=== PATIENT | male | born 1960 | race African-American/Black ===

== ENCOUNTER 2016-11-14 13:15 | Inpatient (IN) | payer MEDICARE ==
--- NOTE | ~2016-11-14 | CO ---
Unit #: [id number] #: [id number] Patient: MARCO ANTONIO NI [id number] [id number] [facility]. [place], [place] [address] [id number] I MR#: [id number] NAME: MARCO ANTONIO NI ROOM: 313 Age: 56 Sex: M Admission Date: 11/14/2016 : 1960 Attending Physician: Minna Kilpatrick M.D. Requesting Physician: Sima Casarez M.D. CONSULTATION REPORT REASON FOR CONSULTATION Evaluation for atrial fibrillation. HISTORY OF PRESENT ILLNESS He is a 56-year-old gentleman who had a history of hypertension. He has not been taking his medications on a regular basis. He also has a history of diabetes. Her came in because of the blurred vision. When he came in his blood pressure was more than 200 systolic. Eventually he was admitted for further treatment of his hypertensive urgency. He is started on Norvasc, lisinopril, hydrochlorothiazide. Now his blood pressure is 150 systolic. He denies any chest pain, shortness of breath, orthopnea, PND, palpitations but he is still having some blurred vision. PAST MEDICAL HISTORY He is positive for hypertension, diabetes, psoriasis. PAST SURGICAL HISTORY None. SOCIAL HISTORY He lives by himself. He does not smoke and does not drink. FAMILY HISTORY His dad had a heart attack at the age of 51. ALLERGIES Not allergic to any medications. MEDICATIONS He is supposed to take amlodipine 10 mg daily; Zestril 30 mg daily; hydrochlorothiazide 25 mg daily; Lantus and Humalog but he has not been taking. REVIEW OF SYSTEMS A ten point review of system is negative except as noted in HPI. PHYSICAL EXAMINATION GENERAL: He looks comfortable, lying comfortably in bed. He is undergoing echo. VITAL SIGNS: He is heart rate is 90 but irregularly. On the monitor he is having AFib. Blood pressure is 150/60. He is breathing at a respiratory rate of 16. HEENT: Conjunctivae normal. Pupils are round and reactive. Oral mucosa is moist. No cyanosis. Unit #: [id number] #: [id number] Patient: MARCO ANTONIO NI NECK: He had no thyromegaly. Carotid upstroke is normal. JVD is not elevated. CHEST: Breathing normal and clear on auscultation. CARDIAC: He has no parasternal lift. S1 and S2 normally heard. No gallop. No murmur. ABDOMEN: Soft, liver and spleen not enlarged. Abdominal aorta not palpable and guaiac test not indicated. EXTREMITIES: No pedal edema. 2+ bilateral femoral and dorsal pedis vessel. There is no clubbing. SKIN: No rash or abnormal pigmentation. NEUROLOGIC: He is oriented x3. Mood is normal. Muscle in all extremities normal. DIAGNOSTIC STUDIES CARDIOLOGY STUDIES: EKG is definitely AFib with rapid ventricular rate with nonspecific ST-T changes. I also looked his echo, which is showing a concentric mild LVH with normal LV size and function but he has left atrial enlargement. ASSESSMENT 1. AFib with rapid ventricular rate. 2. Hypertension, poorly controlled secondary to noncompliance. 3. Diabetes, also poorly controlled. PLAN 1. From a cardiac standpoint I will continue with his amlodipine and Zestril, hydrochlorothiazide. 2. I will put him on slow release metoprolol succinate 100 mg p.o. daily. I will also initiate Eliquis 5 mg twice a day. Probably this patient can be discharged home tomorrow. Dictated by... Norma Blake/milagros TD: 11/15/2016 10:36 JOB #: [id number] CONSULTATION REPORT X Camron Bloom MD X CONSULTATION REPORT
--- NOTE | ~2016-11-14 | CT17 ---
[facility] A Service of [facility] RADIOLOGY TEXT RESULTS PATIENT: MARCO ANTONIO NI LOCATION: C3A 313-01 : [birth year] UNIT #: [id number] AGE: [address]: Minna Kilpatrick MD SEX: M ORDER DR: [id number] [facility] [address] [place], [place] [address] [id number] I MR#: [id number] Acc #: [id number] NAME: MARCO ANTONIO NI : 1960 SEX: M STUDY DATE/TIME: 11/15/2016 16:34 UNIT: SEDOF ROOM: [id number] STUDY DESCRIPTION: CT Angio Head Attending Physician: Sima Casarez M.D. Ordering Physician: Minna Kilpatrick M.D. MEDICAL IMAGING REPORT This report is preliminary unless electronic signature is present EXAM CT arteriogram of the head and neck vasculature, 11/15/2016. CLINICAL HISTORY 56-year-old male with severe headache and vision loss. Patient has diabetes. The vision loss has occurred over the last 3 days with headache for 1 month. TECHNIQUE Contiguous 2 mm axial images were obtained through the region of the head and neck vasculature after bolus IV contrast administration. 2-D and 3-D reconstructions were then performed at a separate workstation and submitted for evaluation. This CT exam was performed with one or more of the following radiation dose reduction techniques: automatic exposure control, adjustment of mA and/or kV according to patient size, and iterative reconstruction. FINDINGS The arch angiogram demonstrates a normal branching pattern without evidence of a great vessel origin stenosis. The vertebral artery origins are widely patent bilaterally and the vertebral arteries appear codominant. This persists at the vertebrobasilar junction and the basilar artery is normal in caliber as well. The basilar artery terminates into normal P1 and P2 segments bilaterally as well as single bilateral superior cerebellar arteries. The MCA, GEOFFREY and CALL CENTER AGENT runoffs are symmetric and the anterior circulation shows a normal M1 and A1 segment bilaterally. Patent anterior communicating artery is suggested but no posterior communicating artery is identified. No aneurysms, hypervascular lesions or evidence of AV shunting is appreciated. IMPRESSION [facility] A Service of [facility] RADIOLOGY TEXT RESULTS PATIENT: MARCO ANTONIO NI LOCATION: C3A 313-01 : [birth year] UNIT #: [id number] AGE: [address]: Minna Kilpatrick MD SEX: M ORDER DR: 1. No evidence of an aneurysm, hypervascular lesion or AV shunting. 2. No cerebrovascular stenosis of significance. 3. No narrowing of the cervical carotid bifurcations by NASCET criteria. Dictated by... Ashwin Aguilar M.D. THIS IS AN ELECTRONICALLY VERIFIED REPORT Ashwin Aguilar M.D. at 11/16/2016 4:12 PM Luc TD: 11/15/2016 21:25 JOB #: [id number] MEDICAL IMAGING REPORT COPY
--- NOTE | ~2016-11-14 | HP ---
Unit #: [id number] #: [id number] Patient: MARCO ANTONIO NI [id number] [facility] [address] [place], [place] [address] [id number] I MR#: [id number] NAME: MARCO ANTONIO NI ROOM: 550 Age: 56 Sex: M Admission Date: 11/14/2016 : 1960 Attending Physician: Sima Casarez M.D. HISTORY AND PHYSICAL CHIEF COMPLAINT Losing vision. HISTORY OF PRESENT ILLNESS The patient is a 56-year-old male with past medical history of hypertension, diabetes, psoriasis, who presented to [facility] for evaluation of the above. The patient states that his sister made him come to the hospital. She was concerned about visual loss. Apparently she noticed that he was having to hold onto things and did not seem to be seeing well. The patient states that he wears glasses. His last celine exam was more than a year ago. He has had progressive worsening blurry vision over the past several weeks to months. He has also had a mild headache. He denies any chest pain. No difficulty breathing. He has had an occasional cough. He denies any vomiting or diarrhea. No urinary symptoms. He has not been taking his medication for several months. He states that he does not like needles. He has not been checking his blood sugars at home. On arrival in the emergency department, the patient's blood pressure was 224/128. Initial Accu-Chek was 438. He was given 1 L of normal saline as well as 8 units of regular insulin and 20 mg of labetalol. He was transferred to [facility] for admission. PAST MEDICAL HISTORY 1. Admission to [facility] more than a year ago for uncontrolled high blood pressure (no records). 2. Hypertension. 3. Diabetes. 4. Psoriasis. PAST SURGICAL HISTORY None. SOCIAL HISTORY The patient lives alone. There is no tobacco or alcohol use. FAMILY HISTORY Family history is notable for diabetes. His father of a heart attack at the age of 51. ALLERGIES No known allergies. Unit #: [id number] #: [id number] Patient: MARCO ANTONIO NI HOME MEDICATIONS Home medications are listed as amlodipine, Zestril, hydrochlorothiazide, Lantus, Humalog. The patient has not been taking his medications for several months. Home medications will need to be reviewed and verified. REVIEW OF SYSTEMS A 10-point review of systems is negative except as indicated in the HPI. DIAGNOSTIC STUDIES LABORATORY: Complete blood count essentially normal. Urinalysis is negative. Comprehensive metabolic panel notable for a sodium of 133, that corrects when a glucose of 463 is accounted for, bicarbonate is 30, chloride is 92, total protein 9.5. PHYSICAL EXAMINATION VITAL SIGNS: Temperature 98.4. Pulse 90. Blood pressure 224/128. Oxygen saturation 99% on room air. GENERAL: The patient is an -Pakistani male who is awake and alert, in no acute distress. HEENT: The head is atraumatic. Dentition is poor. NECK: Neck is supple. Trachea is midline. CARDIOVASCULAR: Regular rate and rhythm. LUNGS: Lungs are clear to auscultation bilaterally with no increased work of breathing. ABDOMEN: Abdomen is soft, nontender, with bowel sounds present in all four quadrants. EXTREMITIES: The patient has scattered skin lesions consistent with psoriasis. PSYCHIATRIC: The patient demonstrates poor insight and judgment. NEUROLOGIC: The patient is oriented to place and year. He is moving all extremities. He follows commands. SKIN: Skin demonstrates the previously described abnormalities. ASSESSMENT The patient is a 56-year-old male with: 1. Hypertensive emergency. The patient received 20 mg of labetalol in the emergency department. Most recent blood pressure is 183/117. 2. Uncontrolled diabetes. The patient has not been taking his medication. 3. Blurry vision, likely diabetic retinopathy. 4. Headache. 5. Psoriasis. 6. Elevated total protein. 7. Noncompliance. PLAN 1. Admit for observation to intermediate level. 2. Healthy heart consistent carb diet. 3. Check EKG and cardiac enzymes. 4. Two-D echo. 5. P.r.n. hydralazine. 6. TSH. 7. CT of the head without contrast. 8. Neuro checks. 9. Hemoglobin A1C. 10. Low-dose sliding-scale insulin with Accu-Cheks. 11. Levemir 10 units daily with first dose now. Unit #: [id number] #: [id number] Patient: MARCO ANTONIO NI 12. Verify home medications. 13. Get records from [facility]. 14. Bedrest. 15. Fall precautions. 16. PT and OT to evaluate and treat. 17. manager government/social work consult regarding home safety. 18. Repeat labs in the morning. 19. SCDs for DVT prophylaxis. 20. Additional workup and consultants based on above. Dictated by Sima Casarez M.D. KAREN/ferny TD: 11/14/2016 20:44 JOB #: [id number] HISTORY AND PHYSICAL X Sima Casarez MD X HISTORY AND PHYSICAL
--- NOTE | ~2016-11-14 | MR17 ---
[facility] A Service of [facility] RADIOLOGY TEXT RESULTS PATIENT: MARCO ANTONIO NI LOCATION: C3A PC 313-01 : 62 UNIT #: [id number] AGE: [address]: Minna Kilpatrick MD SEX: M ORDER DR: [id number] [facility] [address] [place], [place] [address] [id number] I MR#: [id number] Acc #: [id number] NAME: MARCO ANTONIO NI : 1960 SEX: M STUDY DATE/TIME: 11/15/2016 10:56 UNIT: SEDOF ROOM: Rust STUDY DESCRIPTION: MR Brain WWo Contrast Attending Physician: Sima Casarez M.D. Ordering Physician: Sima Casarez M.D. MRI CENTER REPORT This report is preliminary unless electronic signature is present. EXAM MRI of the brain with and without contrast performed on 11/15/2016 HISTORY 56-year-old male with blurred vision and hearing loss as well as severe headache for the past 3 days. TECHNIQUE Sagittal and axial T1, axial T2, axial FLAIR, axial diffusion, axial gradient echo, axial and coronal postcontrast T1-weighted images were obtained through the region of the brain. FINDINGS There is restricted diffusion present within the right occipital lobe with corresponding decreased ADC and an acute infarct is suspected. This is in the posterior cerebral artery territory on the right. On the gradient echo sequence, there is some decreased signal seen in the infarcted gyri and petechial hemorrhage is suspected. No midline shift or severe mass effect is present. The occipital horn of the right lateral ventricle remains patent. On the FLAIR sequence, there are foci of increased signal in the periventricular white matter, centrum semiovale and subcortical white matter bilaterally as well as in the cortex involving not only the right occipital lobe but the left temporal lobe as well. In the region of the left temporal lobe, there is additionally some decreased gradient echo signal again consistent with some petechial hemorrhage. Enhancement in this location is seen after gadolinium administration within the brain parenchyma and this is suspected to be a subacute infarct. The acute infarct shows some vascular enhancement. Midline structures are intact and no pituitary or pineal lesions are seen. Some old lacunar infarcts are present in the basal ganglia bilaterally as well as in the sabas. The paranasal sinuses and mastoid air cells are clear. No orbital lesions are seen. The vascular flow voids appear within normal limits. No orbital lesions are seen. [facility] A Service of [facility] RADIOLOGY TEXT RESULTS PATIENT: MARCO ANTONIO NI LOCATION: C3A PC 313-01 : 62 UNIT #: [id number] AGE: [address]: Minna Kilpatrick MD SEX: M ORDER DR: IMPRESSION Bilateral cerebral infarcts of differing ages. 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 This is seen on a background of chronic ischemic changes. No significant mass effect is present at this time. Dictated by... Ashwin Aguilar M.D. THIS IS AN ELECTRONICALLY VERIFIED REPORT Ashwin Aguilar M.D. at 11/15/2016 5:02 PM AJ/emily TD: 11/15/2016 13:58 JOB #: [id number] MRI CENTER REPORT COPY
--- NOTE | ~2016-11-14 | CT71 ---
[facility] A Service of [facility] RADIOLOGY TEXT RESULTS PATIENT: MARCO ANTONIO NI LOCATION: C3A PC 313-01 : [birth year] UNIT #: [id number] AGE: [address]: Minna Kilpatrick MD SEX: M ORDER DR: [id number] [facility] [address] [place], [place] [address] [id number] I MR#: [id number] Acc #: [id number] NAME: MARCO ANTONIO NI : 1960 SEX: M STUDY DATE/TIME: 11/16/2016 14:27 UNIT: SEDOF ROOM: [facility] STUDY DESCRIPTION: CT Head Wo Contrast Attending Physician: Sima Casarez M.D. Ordering Physician: Phoenix Luciano M.D. MEDICAL IMAGING REPORT This report is preliminary unless electronic signature is present EXAM CT brain without contrast media HISTORY SUPPLIED Hemorrhagic recent stroke, possible hemorrhagic transformation on blood thinners. TECHNIQUE Transaxial imaging of the brain was performed without contrast media. This CT exam was performed with one or more of the following radiation dose reduction techniques: automatic exposure control, adjustment of mA and/or kV according to patient size, and iterative reconstruction. COMPARISON Previous study FINDINGS The examination shows some subtle increase in density along the cortical margin of the infarct in the right occipital region. This likely represents small petechial hemorrhages. No mass lesions and no additional mass effect is seen from the right parietal occipital infarct. There are chronic ischemic changes in the periventricular white matter in both hemispheres. No evidence subarachnoid hemorrhage. There is an old area infarction within the right thalamus, stable. CONCLUSION 1. Development of subtle petechial hemorrhages in the right occipital/parietal occipital infarct. No mass effect. No significant change in the size of the infarction and no major hemorrhage. 2. Deep white matter ischemic changes. 3. Old infarct right thalamus. 4. No additional intracranial findings. [facility] A Service of [facility] RADIOLOGY TEXT RESULTS PATIENT: MARCO ANTONIO NI LOCATION: LouA PC 313-01 : [birth year] UNIT #: [id number] AGE: [address]: Minna Kilpatrick MD SEX: M ORDER DR: Dictated by... Kamron Gutierrez M.D. THIS IS AN ELECTRONICALLY VERIFIED REPORT Kamron Gutierrez M.D. at 11/21/2016 1:00 PM ARLEYK/edd TD: 11/16/2016 17:41 JOB #: [id number] MEDICAL IMAGING REPORT COPY
--- NOTE | ~2016-11-14 | EKG ---
PATIENT: MARCO ANTONIO NI UNIT #: [id number] Ventricular Rate: 106 BPM Atrial Rate: 375 BPM QRS Duration: 102 ms Q-T Interval: 348 ms QTC Calculation(Bezet): 462 ms Calculated R Lisman: 86 degrees Calculated T Lisman: -115 degrees Diagnosis Line: Atrial fibrillation with rapid ventricular Diagnosis Line: response with premature ventricular or aberrantly Diagnosis Line: conducted complexes Diagnosis Line: ST and T wave abnormality, consider inferolateral Diagnosis Line: ischemia or digitalis effect Diagnosis Line: Abnormal ECG Diagnosis Line: No previous ECGs available Diagnosis Line: Confirmed by MARIELOS NICE MD ([id number]) on 11/17/2016 Diagnosis Line: 5:28:36 PM INTERPRETING MD: ARLET CHOWDARY
--- NOTE | ~2016-11-14 | DS ---
Unit #: [id number] #: [id number] Patient: MARCO ANTONIO HUGHES [id number] [facility]. [place], [place] [address] [id number] MR#: [id number] NAME: MARCO ANTONIO HUGHES ROOM: 313 Age: 56 Sex: M Admission Date: 11/15/2016 : 1960 Discharge Date: 11/17/2016 Attending Physician: Minna Kilpatrick M.D. DISCHARGE SUMMARY PRINCIPAL DIAGNOSES 1. Bilateral cerebral infarct, embolic in origin secondary to atrial fibrillation. 2. Right occipital lobe embolic stroke with subsequent left-sided hemianopsia. 3. Atrial fibrillation, paroxysmal, currently maintained in normal sinus rhythm. 4. Small subacute infarct of posterior left frontal lobe with associated petechial hemorrhage. 5. Diabetes mellitus type 2, insulin requiring and uncontrolled, with hemoglobin A1c of 10.6. 6. Hyperlipidemia. 7. Hypertensive emergency. 8. Mild delirium, now resolved. 9. Psoriasis, moderate to severe. CONSULTANTS Dr. Whitney of neurology. Dr. Phoenix Luciano of cardiology. PROCEDURES PERFORMED RONALD on 11/16/2016 with trace mitral regurgitation, mildly to moderately increased left atrial size. No evidence of PFO. No evidence of thrombus. No atrioseptal defect. Ejection fraction of 55%-60%. Grade 1 diastolic dysfunction noted. Moderate concentric left ventricular hypertrophy noted. No evidence of plaque of the aorta. Two-dimensional echocardiogram on 10/15/2016 with normal systolic function. DIAGNOSTIC DATA IMAGING: CT of the head without contrast on 11/14/2016 with late subacute or infarct measuring 5.2 cm in left parietal occipital region with mild mass effect. MRI of the brain with and without contrast on 11/15/2016 with bilateral cerebral infarcts. There is an acute infarct in the right occipital lobe [employer] territory, with associated petechial hemorrhage. Subacute infarct in the posterior left frontal lobe with some petechial hemorrhage. No mass effect. CT angiogram of the head and neck on 11/15/2016 with no evidence of aneurysm or AV shunting. No cerebrovascular stenosis of significance and no narrowing of cervical bilateral carotid bifurcations per NASCET Unit #: [id number] #: [id number] Patient: MARCO ANTONIO HUGHES criteria. CT scan of the head without contrast on 11/16/2016 with subtle petechial hemorrhage in the right occipital and parietooccipital infarct. No major hemorrhage. Old right thalamus infarct. CLINICAL HISTORY/HOSPITAL COURSE Mr. Hughes is a 56-year-old male who was brought to the emergency department with vision changes. Please refer to history and physical for further details. In the emergency department the patient was found to have significant hypertension with a blood pressure of 224/128. He was also significantly hyperglycemic with a blood sugar of 438. The patient was subsequently admitted to the hospital. In regard to the patient's vision changes, Dr. Whitney was consulted. Prior to his consultation a CT scan of the head without contrast was done, revealing a subacute stroke. The patient was placed on aspirin therapy and stroke protocol was initiated. The patient underwent MRI of the brain, revealing an acute right parietooccipital stroke in addition to a subacute left cerebral stroke. Given bilateral nature there was significant concern for embolic source and the patient underwent a RONALD with findings as noted. Will continue on statin therapy and plan to treat with aspirin therapy for approximately 14 days due to the small petechial hemorrhage and the stroke and then transition to Eliquis. In the emergency department the patient was also found to be in atrial fibrillation, which was a new diagnosis and the most likely source of the patient's stroke. Cardiology was consulted. The patient did develop atrial fibrillation with rapid ventricular response for a short period during the hospitalization and was placed on a Cardizem drip. He has now been transitioned to oral Cardizem and has converted back to normal sinus rhythm. The patient is felt to be a candidate for a Watchman procedure and the plan is for him to contact (1) following discharge from [facility] for a Watchman procedure. Will arrange for a Watchman procedure as an outpatient. In regard to the patient's hyperglycemia, he does have significantly uncontrolled diabetes and states he does not like to do shots. I have discussed this with the patient and his family extensively. The plan is for him to go on subcutaneous insulin and he can have evaluation at [facility] for perhaps using an insulin pen, which I think would be easier given his vision changes. The patient's other chronic conditions remain stable. Blood pressure is now down and I think elevation is secondary to a combination of his stroke with uncontrolled hypertension at baseline. He will be discharged to [facility] with close followup as an outpatient. DISCHARGE CONDITION Stable. DISPOSITION Discharge to [facility]. DISCHARGE MEDICATIONS 1. Triamcinolone cream 0.1% to be applied to skin plaque b.i.d. 2. Tylenol 650 mg p.o. q.6 h. p.r.n. pain. 3. Norvasc 10 mg daily. Unit #: [id number] #: [id number] Patient: MARCO ANTONIO HUGHES 4. Cardizem CD 240 mg daily. 5. Toprol XL 100 mg daily. 6. Hydrochlorothiazide 25 mg daily. 7. Lipitor 40 mg at bedtime. 8. Lisinopril 30 mg daily. 9. Levemir 20 units subcutaneously b.i.d. 10. NovoLog 9 units subcutaneous t.i.d. with meals with an associated sliding scale. 11. Aspirin 325 mg daily, to stop after dose given on 11/29/2016. Beginning on 11/30/2016 the patient can begin with Eliquis 5 mg p.o. b.i.d. as anticoagulation for his atrial fibrillation. DIET The patient is instructed to follow a heart healthy, constant carb diet. He should have Accu-Cheks morning and evening. ACTIVITY He will increase his activity as tolerated. FOLLOWUP 1. The patient will follow up with Dr. Bloom in approximately two to three weeks, again for evaluation for a Watchman procedure. 2. The patient is to follow up with Dr. Juan A Yanes of outpatient neurology in approximately six to eight weeks for further evaluation of his stroke. 3. The patient should follow up with his primary care physician upon discharge from [facility] as well. 4. The patient will need close monitoring of his sugars. Dictated by... Minna Kilpatrick M.D. JYOTI/estefania TD: 11/17/2016 12:19 JOB #: [id number] DISCHARGE SUMMARY X Minna Kilpatrick MD DISCHARGE SUMMARY
--- NOTE | ~2016-11-14 | CO ---
Unit #: [id number] #: [id number] Patient: MARCO ANTONIO NI [id number] [facility] [address] [place], [place] [address] [id number] MR#: [id number] NAME: MARCO ANTONIO NI ROOM: 313 Age: 56 Sex: M Admission Date: 11/14/2016 : 1960 Attending Physician: Minna Kilpatrick M.D. Consultation Date: 11/15/2016 CONSULTATION REPORT REFERRING PHYSICIAN Dr. Sima Casarez. PRIMARY CARE PHYSICIAN Not known. REASON FOR CONSULTATION Loss of vision, possible stroke. PATIENT IDENTIFICATION This is a 56-year-old right-handed -[place] male, who was evaluated in room 313 at [facility]. SOURCE OF INFORMATION The patient and the medical record. PROBLEM LIST 1. The most important problem that this young man has is that he is noncompliant. He comes in here with blood pressure of 224/128, so he is hypertensive. 2. He is diabetic. His random glucose was 438. 3. He has psoriasis. 4. He had probably a problem like this in the past. 5. He does have a MRI showing infarct in the right [employer]PL[employer] REPAIRS division. 6. On top of that, he has atrial fibrillation. HISTORY OF PRESENT ILLNESS This is a 56-year-old gentleman with past medical history as discussed above, who actually presented to [facility] from [facility] for evaluation of some blurred vision or loosing vision. He has been apparently dropping things. That has been going on for weeks. Finally, his sister convinced him to go to the hospital. 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 He had atrial fibrillation. He had significant hypertension. He had significant hyperglycemia, so he has been admitted and further workup has been initiated. Dr. Dyson has seen him. He has atrial fibrillation and he has been started on anticoagulation. He may have hypertensive encephalopathy and other issues. The only good thing about his situation is that he is not a smoker. He has significant dental caries also, nothing suggesting endocarditis. Obviously, he was not a (1) intervention candidate. His further Unit #: [id number] #: [id number] Patient: MARCO ANTONIO NI workup is in progress. He does not take any aspirin at home. PAST MEDICAL HISTORY As discussed above. PAST SURGICAL HISTORY As discussed above. ALLERGIES None. HOME MEDICATIONS He is not taking any medications for months but apparently he has been on: 1. Amlodipine. 2. Zestril. 3. Hydrochlorothiazide. 4. Lantus. 5. Humalog. FAMILY HISTORY Diabetes. Father of heart attack at age 51. SOCIAL HISTORY The patient apparently lives alone. No tobacco, alcohol, or drug use. REVIEW OF SYSTEMS CONSTITUTIONAL: He is a bit confused. He is not totally oriented. He denies any recent weight issues, fever, chills, rigors, sweats. He denies any sleep issues. HEENT: Vision changes as discussed. NECK: No neck problems. CARDIOVASCULAR: No chest pain, clubbing, cyanosis, orthopnea, palpitations. He does have atrial fibrillation but apparently he may not know. PULMONARY: No shortness of air, cough, or expectoration. GASTROINTESTINAL: No nausea, vomiting, diarrhea, or constipation. GENITOURINARY: No genitourinary symptoms. No other extremity problems. No back problems. No psychiatric issues. NEUROLOGIC: Issues as discussed. HEMATOLOGIC/DERMATOLOGIC/ENDOCRINE: He is a diabetic, otherwise no hematologic, dermatologic, or endocrine problem known to me. PHYSICAL EXAMINATION VITAL SIGNS: Temperature 97.5, pulse 64, respiratory rate 19, blood pressure 144/99. Pain was anywhere from 0-10 over 10. O2 saturations 100%. Weight of 184 pounds. BMI was 26. His blood pressure has been as high as 225 systolic, 132 diastolic. Heart rate anywhere up to 120. NEUROLOGIC: The patient is awake. He is alert. He is oriented to himself. He knows this is November, Monday, and 2016. He does not know the place or the exact date. He can name and he can follow commands. No right/left confusion. No finger agnosia. He is a bit slow in responses but appropriate. CRANIAL NERVES: Demonstrate left homonymous hemianopia. Eye movements are conjugate. Pupils are reactive to light and accommodation, size about 3 mm. No ptosis. No nystagmus. Sensation on the face, scalp normal. Strength of muscles of facial expression normal. Hearing seemed to be Unit #: [id number] #: [id number] Patient: GROVEVenita,MARCO ANTONIO intact. Tongue was midline. Uvula was midline. Palate elevation was normal. Head turning and shoulder shrug was unremarkable. MOTOR: Demonstrates normal bulk, tone. Strength was essentially 5- over 5 all over. SENSORY: Intact for soft touch and pain sensation. No extinction was seen. Romberg was not evaluated. GAIT: Deferred. REFLEXES: I could not get any reflexes. Toes were equivocal. DIAGNOSTIC STUDIES Labs and imaging studies reviewed personally. I looked at a CT and MRI. Random glucose was 317 and 463. Sodium was 133. White count was 8.6, H and H of 15.5 and 46.4, platelet count 293,000. 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 I will check his lipids also. He may have hypertensive encephalopathy. He has atrial fibrillation, so he has a lot of reasons for strokes. I will check a CTA. I will request a RONALD. He has already been started on Eliquis. He is at borderline stroke because it is a significant division of right PREPAR[employer] SAMPLES AND REPAIRS but with the atrial fibrillation, we may have to anticoagulation and this is subacute, probably several weeks old, so will discuss that with the team. I discussed the case with Dr. Kilpatrick. Stroke education and modification of stroke risk factor is discussed. Further treatment will be based on any findings. I am requesting CTA, hemoglobin A1c, lipid profile. I am starting him on Lipitor at 40 mg and will see how things go. The only question would be anticoagulation, what type to use in case his RONALD is positive. The other issue is going to be is he going to be anticoagulated anyway, so would it make any difference and it may be the place he has atheroma, like arch atheroma. That may make a difference but will discuss with the team. Followup with Dr. Yanes or neurologist of choice as outpatient. Stroke education because he did not come here on time. I will followup. Call me for any other questions, issues, or concerns. Dictated by... Norma Johnston TD: 11/15/2016 13:37 JOB #: [id number] CONSULTATION REPORT X Wayne Whitney MD CONSULTATION REPORT
--- NOTE | ~2016-11-14 | CT71 ---
[facility] A Service of [facility] RADIOLOGY TEXT RESULTS PATIENT: MARCO ANTONIO NI LOCATION: C3A 313- : 62 UNIT #: [id number] AGE: [address]: Minna Kilpatrick MD SEX: M ORDER DR: [id number] [place], [place] [address] [id number] I MR#: [id number] Acc #: [id number] NAME: MARCO ANTONIO NI : 1960 SEX: M STUDY DATE/TIME: 11/14/2016 21:02 UNIT: SEDOF ROOM: [facility] STUDY DESCRIPTION: CT Head Wo Contrast Attending Physician: Sima Casarez M.D. Ordering Physician: Sima Casarez M.D. MEDICAL IMAGING REPORT This report is preliminary unless electronic signature is present EXAM CT head without contrast, 11/14/2016 INDICATION Headache, blurred vision for the past [address] head. COMPARISON None. TECHNIQUE This CT exam was performed with one or more of the following radiation dose reduction techniques: automatic exposure control, adjustment of mA and/or kV according to patient size, and iterative reconstruction. FINDINGS No acute hemorrhage. Age indeterminate but probably subacute infarct in the right occipital and parietal regions. Area of infarct measures approximately 5.2 cm. There is mild mass effect with effacement of the occipital horn of the right lateral ventricle. No calvarial fracture. Paranasal sinuses and mastoid air cells clear. IMPRESSION Age indeterminate but probably late subacute or subacute infarct measuring up to 5.2 cm in the left parietal occipital region. There is a mild mass effect. This could be aged with MRI if desired clinically. There is no acute hemorrhage. Dictated by... [facility] A Service [facility] RADIOLOGY TEXT RESULTS PATIENT: MARCO ANTONIO NI LOCATION: C3A PC 313- : 62 UNIT #: [id number] AGE: [address]: Minna Kilpatrick MD SEX: M ORDER DR: Eulogio Mo M.D. THIS IS AN ELECTRONICALLY VERIFIED REPORT Eulogio Mo M.D. at 11/15/2016 12:59 PM EED/elizabeth TD: 11/15/2016 01:10 JOB #: [id number] MEDICAL IMAGING REPORT COPY
--- NOTE | ~2016-11-14 | CT23 ---
[facility] A Service of [facility] RADIOLOGY TEXT RESULTS PATIENT: MARCO ANTONIO NI LOCATION: A 313-01 : 62 UNIT #: [id number] AGE: [address]: Minna Kilpatrick MD SEX: M ORDER DR: [id number] [facility]. [place], [place] [address] [id number] I MR#: [id number] Acc #: [id number] NAME: MARCO ANTONIO NI : 1960 SEX: M STUDY DATE/TIME: 11/15/2016 16:34 UNIT: SEDOF ROOM: [facility] STUDY DESCRIPTION: CT Angio Neck Attending Physician: Sima Casarez M.D. Ordering Physician: Minna Kilpatrick M.D. MEDICAL IMAGING REPORT This report is preliminary unless electronic signature is present EXAM CTA neck, 11/15/2016 For results of this exam please see report of CTA head of the same date. Dictated by... Ashwin Aguilar M.D. THIS IS AN ELECTRONICALLY VERIFIED REPORT Ashwin Aguilar M.D. at 11/16/2016 4:12 PM Luc TD: 11/15/2016 21:31 JOB #: [id number] MEDICAL IMAGING REPORT COPY
[2016-11-14 13:11] LABS: URINE SOURCE CLEAN CATCH
[2016-11-14 13:13] LABS: BASOPHIL# 0.2 X10e3 (0.0-0.3); BASOPHIL% 3.5 % (0.0-2.5); EOSINOPHIL% 0.3 % (0.0-7.0); HEMATOCRIT 50.7 % (38.0-50.0); HEMOGLOBIN 16.7 gm/dl (13.0-17.0); LYMPHOCYTE# 2.1 X10e3 (1.0-3.5); LYMPHOCYTE% 29.6 % (17.0-45.0); MEAN CELL VOLUME 85.3 FL (83-96); MEAN CORPUSCULAR HEMOGLOBIN 28.1 PG (28-34); MEAN PLATELET VOLUME 8.1 FL (6.5-11.5); MONOCYTE# 0.7 X10e3 (0.0-1.0); MONOCYTE% 9.7 % (3.0-12.0); NEUTROPHIL# 3.9 X10e3 (1.5-7.1); NEUTROPHIL% 56.9 % (40.0-75.0); PLATELET COUNT 374 X10e3 (140-420); RED BLOOD COUNT 5.94 X10e6 (3.90-5.60); RED CELL DISTRIBUTION WIDTH 12.9 % (11.0-15.5); WHITE BLOOD COUNT 6.9 X10e3 (4.0-10.5)
[2016-11-14 13:13] LABS: URINE APPEARANCE CLEAR; URINE BILIRUBIN NEG (NEG); URINE COLOR YELLOW; URINE GLUCOSE 300 MG/DL (NORM); URINE KETONE NEG (NEG); URINE LEUKOCYTE ESTERASE NEG (NEG); URINE NITRATE NEG (NEG); URINE PH 5.5 (5-8); URINE PROTEIN NEG (NEG); URINE SPECIFIC GRAVITY 1.015 (1.003-1.035)
[2016-11-14 13:14] LABS: DIFF IND NO
[2016-11-14 13:14] LABS: MICRO INDICATED? NO; URINE BLOOD NEG (NEG)
[~2016-11-14 13:15] MED LIST: AMLODIPINE BESY10 MG PO; HCTZ PO; HUMALOG100 U/M1; LANTUS100 U/ML SUBQ; ZESTRIL30 MG PO
[2016-11-14 13:32] LABS: ALBUMIN SERUM 4.6 g/dL (3.5-5.0); ALKALINE PHOSPHATASE 81 U/L (32-92); ALT (SGPT) 31 U/L (10-40); AST (SGOT) 26 U/L (10-42); BILIRUBIN, DIRECT 0.2 mg/dL (0.0-0.2); BILIRUBIN,INDIRECT 0.6 mg/dL (0.0-0.9); BILIRUBIN,TOTAL 0.8 mg/dL (0.2-2.0); BLOOD UREA NITROGEN 11 mg/dL (9-23); CALCIUM SERUM 9.5 mg/dL (8.4-10.2); CARBON DIOXIDE 30 mmol/L (22-31); CHLORIDE 92 mmol/L (100-111); GLOM FILT RATE Estimated ABOVE60 mL/min (>60); GLUCOSE FASTING 463 mg/dL (70-110); PROTEIN TOTAL SERUM 9.5 g/dL (6.0-8.3); SODIUM 133 mmol/L (135-145)
[2016-11-14 21:51] LABS: %MB 1.9 % (0.0-4.0)
[2016-11-14] MEDS ORDERED: NORVASC10 MG PO (22:16)
[2016-11-15 02:21] LABS: BASOPHIL# 0.1 X10e3 (0-0.3); BASOPHIL% 1.2 % (0-2.5); EOSINOPHIL# 0.1 X10e3 (0-0.7); EOSINOPHIL% 0.6 % (0.0-7.0); HEMATOCRIT 46.4 % (38.0-50.0); HEMOGLOBIN 15.5 gm/dL (13.0-16.0); LYMPHOCYTE% 23.5 % (17.0-45.0); MEAN CELL VOLUME 86.9 FL (83-96); MEAN CORPUSCULAR HGB CONC 33.4 g/dL (30-36); MEAN PLATELET VOLUME 8.2 FL (6.5-11.5); MONOCYTE# 0.7 X10e3 (0-1.0); MONOCYTE% 7.9 % (3.0-12.0); NEUTROPHIL# 5.7 X10e3 (1.5-7.1); NEUTROPHIL% 66.8 % (40-75); PLATELET COUNT 293 X10e3 (140-420); RED BLOOD COUNT 5.34 X10e (3.90-5.60); RED CELL DISTRIBUTION WIDTH 13.7 % (11.0-15.5); WHITE BLOOD COUNT 8.6 X10e3 (4.0-10.5)
[2016-11-15 02:23] LABS: DIFF IND NO
[2016-11-15 02:53] LABS: ALBUMIN SERUM 3.8 g/dL (3.5-5.0); ALKALINE PHOSPHATASE 70 U/L (32-92); ALT (SGPT) 25 U/L (10-40); AST (SGOT) 22 U/L (10-42); BILIRUBIN,TOTAL 0.9 mg/dL (0.2-2.0); BLOOD UREA NITROGEN 11 mg/dL (9-23); BUN/CREATININE RATIO 12.22; CALCIUM SERUM 8.9 mg/dL (8.4-10.2); CARBON DIOXIDE 27 mmol/L (22-31); CHLORIDE 101 mmol/L (100-111); CREATININE SERUM 0.9 mg/dL (0.6-1.4); GLOM FILT RATE Estimated ABOVE60 mL/min (>60); GLUCOSE FASTING 317 mg/dL (70-110); MB 2.3 ng/ml; PROTEIN TOTAL SERUM 7.7 g/dL (6.0-8.3); SODIUM 133 mmol/L (135-145)
[2016-11-15 06:13] LABS: %MB 2.1 % (0.0-4.0); MB 2.5 ng/ml
[2016-11-15] MEDS ORDERED: MR XX (12:17)
[2016-11-16 06:14] LABS: HEMOGLOBIN 15.8 gm/dL (13.0-16.0); MEAN CELL VOLUME 87.4 FL (83-96); MEAN CORPUSCULAR HEMOGLOBIN 29.3 PG (28-34); MEAN CORPUSCULAR HGB CONC 33.5 g/dL (30-36); MEAN PLATELET VOLUME 8.9 FL (6.5-11.5); RED BLOOD COUNT 5.38 X10e (3.90-5.60); RED CELL DISTRIBUTION WIDTH 13.6 % (11.0-15.5); WHITE BLOOD COUNT 8.7 X10e3 (4.0-10.5)
[2016-11-16 07:00] LABS: BLOOD UREA NITROGEN 14 mg/dL (9-23); BUN/CREATININE RATIO 15.55; CALCIUM SERUM 9.5 mg/dL (8.4-10.2); CARBON DIOXIDE 29 mmol/L (22-31); CHLORIDE 97 mmol/L (100-111); CHOLESTEROL 136 mg/dL (0-200); CREATININE SERUM 0.9 mg/dL (0.6-1.4); GLOM FILT RATE Estimated ABOVE60 mL/min (>60); GLUCOSE FASTING 237 mg/dL (70-110); HDL CHOLESTEROL 25 mg/dL (29-75); LDL CHOLESTEROL 98 mg/dL (-130); LDL/HDL RATIO 4 RATIO (0-4); POTASSIUM 3.8 mmol/L (3.5-5.1); SODIUM 134 mmol/L (135-145); TRIGLYCERIDES 64 mg/dL (10-160)
== END 2016-11-17 14:21 | DRG 308 ==
LOC: SED 13:15 → SEDOF 15:23 → C5B 18:46 → C3A PCU 11-15 14:35
PROVIDERS: Emergency Medicine; Family Medicine; Internal Medicine; Internal Medicine Cardiovascular Disease
PROC: B32GYZZ Computerized Tomography (CT Scan) of Bilateral Vertebral Arteries using Other Contrast (ICD-10-PCS; principal; 2016-11-15)
DX: I48.0 Paroxysmal atrial fibrillation (principal); I63.443 Cerebral infarction due to embolism of bilateral cerebellar arteries; H53.47 Heteronymous bilateral field defects; I16.0 Hypertensive urgency; E11.65 Type 2 diabetes mellitus with hyperglycemia; L40.9 Psoriasis, unspecified; Z79.4 Long term (current) use of insulin; Z91.19 Patient's noncompliance with other medical treatment and regimen; E78.5 Hyperlipidemia, unspecified; K02.9 Dental caries, unspecified; Z83.3 Family history of diabetes mellitus; Z82.49 Family history of ischemic heart disease and other diseases of the circulatory system; E11.319 Type 2 diabetes mellitus with unspecified diabetic retinopathy without macular edema; R23.3 Spontaneous ecchymoses
CPT/HCPCS: 36415; 70450; 70496; 70498; 70553; 80048; 80053; 80061; 80076; 81003; 82550; 82553; 82947; 83036; 83721; 84443; 84484; 85025; 85027; 86140; 90688; 92523-GN; 92610; 93005; 93306; 93312; 96361; 96374; 96375; 97116; 97162; 97166; 97532; 99285; A9577; G8978-GP; G8979-GP; G8987-GO; G8988-GO; G9159-GN; G9160-GN; G9161-GN; J0360; J1815; J2250; J2270; J3010; J3490; Q9967